=== PATIENT | female | born 1995 | race Caucasian/White ===

== ENCOUNTER 2018-09-25 07:21 | Emergency (ER) | payer MEDICAID, SELFPAY ==
[2018-09-25 07:31] VITALS: BP 133/91; PULSE 103; RESP 12; TEMP 36.6; O2SAT 97
--- NOTE | 2018-09-25 07:43 | W.ED.GENAD ---
Discharge Plan Disposition Patient Disposition: HOME Condition: Stable Discharge Details Chief Complaint: EarProblem Clinical Impression: Acute left otitis media Primary Care Provider: None,None ED Provider: Joe White Home Meds and New Rx's Prescriptions: New azithromycin 500 mg tablet See Rx Instructions .ROUTE .COMPLEX Qty: 6 RF: 0 No Action pantoprazole [Protonix] 20 MG tablet,delayed release (DR/EC) 40 mg PO DAILY RF: 0 Discharge Instructions Instructions: Otitis Media (ED) Additional Instructions: you can take 1000mg tylenol and 600mg ibuprofen every 6 hours for pain as needed if not better this week see your primary care provider if you feel significantly more ill, have persistent vomit or difficulty breathing return to the emergency department for reevaluation Medical Decision Making Pt comes in with 1 day of left ear pain and mild headache she states she gets with ear infections. 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 Her left tm is red and bulging. Given her pain level will start abx, advised f/u with pcp and return precautions given Differential Diagnosis uri, aom HPI General Mode of arrival: ambulatory. Date/Time Provider Initiated Documentation: 09/25/18 07:41. Limitations to Documentation: no limitations. Information obtained by: patient. History of Present Illness 23 year old F presents to the emergency department with the chief complaint of left ear pain, described as moderate, with intensity rated at 5. Quality is described as aching, Patient reports no radiation. Patient started experiencing this day(s) (1) and it has been constant. No relieving factors improve symptom(s), No exacerbating factors reported . Patient did receive the following treatments prior to arrival, none Related Data Home Medications Medication Instructions Recorded Confirmed pantoprazole [Protonix] 40 mg PO DAILY tab-cap 06/09/13 09/25/18 azithromycin See Rx Instructions .ROUTE 09/25/18 .COMPLEX #6 tab Previous Rx's Medication Instructions Recorded azithromycin See Rx Instructions .ROUTE 09/25/18 .COMPLEX #6 tab Allergies Allergy/AdvReac Type Severity Reaction Status Date / Time amoxicillin [Amoxicillin] Allergy Intermediate Effects Unverified 09/25/18 07:35 her breathing nitrofurantoin Allergy Intermediate Hives Unverified 09/25/18 07:35 [From Macrobid] nitrofurantoin Allergy Intermediate Hives Unverified 09/25/18 07:35 macrocrystalline [From Macrobid] General Stated Complaint: EarProblem ULISES: 5 Review of Systems Review of Systems All systems reviewed & are unremarkable except as noted in HPI and below Constitutional Denies chills, Denies fever(s) and Denies weakness Cardiovascular Denies chest pain and Denies dyspnea Respiratory Denies cough and Denies dyspnea Gastrointestinal Denies abdominal pain, Denies nausea and Denies vomiting Musculoskeletal Denies joint swelling Neurologic Denies weakness Endocrine Denies heat intolerance [facility] Social History Smoking/Tobacco Use Status: Never Exam Const General: no acute distress Orientation: alert HENMT Head: normal to inspection Ears: external ears normal General nose exam: external nose normal Mouth: moist mucous membranes Eyes General: appearance normal, both eyes and all related structures Neck Neck: normal visual inspection Resp Effort & Inspection: normal respiratory effort and able to speak in complete sentences Cardio Rate: regular rate Skin General skin exam: no rashes or lesions noted Neuro General: alert and oriented x3 Extrem General: normal to inspection Psych Mental Status: mental status grossly normal Course Vital Signs Temperature 36.6 C 09/25/18 07:31 Pulse 103 H 09/25/18 07:31 Respiratory Rate 12 09/25/18 07:31 Blood Pressure 133/91 H 09/25/18 07:31 Pulse Oximetry 97 09/25/18 07:31 Temperature 36.6 C 09/25/18 07:31 Temperature Source Temporal Artery Scan 09/25/18 07:31 Pulse 103 H 09/25/18 07:31 Respiratory Rate 12 09/25/18 07:31 Respiratory Effort Non-Labored 09/25/18 07:33 Blood Pressure 133/91 H 09/25/18 07:31 Blood Pressure Position Sitting 09/25/18 07:31 Pulse Oximetry 97 09/25/18 07:31 Oxygen Delivery Method Room Air 09/25/18 07:31 Oxygen Flow Rate 0 09/25/18 07:31 Pain Level 9 09/25/18 07:33
--- NOTE | 2018-09-25 07:46 | ED.GENADUL_ITS ---
Discharge Plan Disposition Patient Disposition: HOME Condition: Stable Discharge Details Chief Complaint: EarProblem Clinical Impression: Acute left otitis media Primary Care Provider: None,None ED Provider: Joe White Home Meds and New Rx's Prescriptions: New azithromycin 500 mg tablet See Rx Instructions .ROUTE .COMPLEX Qty: 6 RF: 0 No Action pantoprazole [Protonix] 20 MG tablet,delayed release (DR/EC) 40 mg PO DAILY RF: 0 Discharge Instructions Instructions: Otitis Media (ED) Additional Instructions: you can take 1000mg tylenol and 600mg ibuprofen every 6 hours for pain as needed if not better this week see your primary care provider if you feel significantly more ill, have persistent vomit or difficulty breathing return to the emergency department for reevaluation Medical Decision Making Pt comes in with 1 day of left ear pain and mild headache she states she gets with ear infections. 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 Her left tm is red and bulging. Given her pain level will start abx, advised f/u with pcp and return precautions given Differential Diagnosis uri, aom HPI General Mode of arrival: ambulatory . Date/Time Provider Initiated Documentation: 09/25/18 07:41 . Limitations to Documentation: no limitations . Information obtained by: patient . History of Present Illness 23 year old F presents to the emergency department with the chief complaint of left ear pain, described as moderate, with intensity rated at 5. Quality is described as aching, Patient reports no radiation. Patient started experiencing this day(s) (1) and it has been constant. No relieving factors improve symptom(s) , No exacerbating factors reported . Patient did receive the following treatments prior to arrival, none Related Data Home Medications Medication Instructions Recorded Confirmed pantoprazole [Protonix] 40 mg PO DAILY tab-cap 06/09/13 09/25/18 azithromycin See Rx Instructions .ROUTE 09/25/18 .COMPLEX #6 tab Previous Rx's Medication Instructions Recorded azithromycin See Rx Instructions .ROUTE 09/25/18 .COMPLEX #6 tab Allergies Allergy/AdvReac Type Severity Reaction Status Date / Time amoxicillin [Amoxicillin] Allergy Intermediate Effects Unverified 09/25/18 07:35 her breathing nitrofurantoin Allergy Intermediate Hives Unverified 09/25/18 07:35 [From Macrobid] nitrofurantoin Allergy Intermediate Hives Unverified 09/25/18 07:35 macrocrystalline [From Macrobid] General Stated Complaint: EarProblem ULISES: 5 Review of Systems Review of Systems All systems reviewed & are unremarkable except as noted in HPI and below Constitutional Denies chills, Denies fever(s) and Denies weakness Cardiovascular Denies chest pain and Denies dyspnea Respiratory Denies cough and Denies dyspnea Gastrointestinal Denies abdominal pain, Denies nausea and Denies vomiting Musculoskeletal Denies joint swelling Neurologic Denies weakness Endocrine Denies heat intolerance [facility] Social History Smoking/Tobacco Use Status: Never Exam Const General: no acute distress Orientation: alert HENMT Head: normal to inspection Ears: external ears normal General nose exam: external nose normal Mouth: moist mucous membranes Eyes General: appearance normal, both eyes and all related structures Neck Neck: normal visual inspection Resp Effort & Inspection: normal respiratory effort and able to speak in complete sentences Cardio Rate: regular rate Skin General skin exam: no rashes or lesions noted Neuro General: alert and oriented x3 Extrem General: normal to inspection Psych Mental Status: mental status grossly normal Course Vital Signs Temperature 36.6 C 09/25/18 07:31 Pulse 103 H 09/25/18 07:31 Respiratory Rate 12 09/25/18 07:31 Blood Pressure 133/91 H 09/25/18 07:31 Pulse Oximetry 97 09/25/18 07:31 Temperature 36.6 C 09/25/18 07:31 Temperature Source Temporal Artery Scan 09/25/18 07:31 Pulse 103 H 09/25/18 07:31 Respiratory Rate 12 09/25/18 07:31 Respiratory Effort Non-Labored 09/25/18 07:33 Blood Pressure 133/91 H 09/25/18 07:31 Blood Pressure Position Sitting 09/25/18 07:31 Pulse Oximetry 97 09/25/18 07:31 Oxygen Delivery Method Room Air 09/25/18 07:31 Oxygen Flow Rate 0 09/25/18 07:31 Pain Level 9 09/25/18 07:33
[2018-09-25] MEDS: Ketorolac 30 MG/ML VIAL IM (07:53)
== END 2018-09-25 08:00 | disposition home or self-care (01) ==
PROVIDERS: Emergency Provider Emergency Medicine
DX: H66.91 Otitis media, unspecified, right ear (principal); R51 Headache
CPT/HCPCS: 96372; 99284; 99283; J1885

== ENCOUNTER 2019-01-24 00:35 | Emergency (ER) | payer MEDICAID, SELFPAY ==
[2019-01-24 00:37] VITALS: BP 128/89; PULSE 94; RESP 20; TEMP 36.4; O2SAT 100
--- NOTE | 2019-01-24 00:47 | ED.GENADUL_ITS ---
Discharge Plan Disposition Patient Disposition: HOME Condition: Stable Discharge Details Chief Complaint: RespSymp Clinical Impression: URI (upper respiratory infection) Primary Care Provider: None,None ED Provider: Joe White Home Meds and New Rx's Prescriptions: New benzonatate [Tessalon Perles] 100 mg capsule 100 mg PO TID PRN (Reason: cough) Qty: 20 RF: 0 Continued pantoprazole [Protonix] 20 MG tablet,delayed release (DR/EC) 40 mg PO DAILY RF: 0 Discharge Instructions Instructions: Upper Respiratory Infection (ED) Additional Instructions: follow up with your primary care provider you can take 1000mg tylenol and 600mg ibuprofen every 6 hours for pain as needed if you feel you are becoming more ill or having worsening shortness of breath return to the emergency department Medical Decision Making 23 yo female who denies chronic medical problems, states she is a smoker but denies alcohol or drug use comes in with cough for 2 months despite prednisone, inhalers and abx. Denies fevers or recent travel. on exam she is speaking in full sentences in no distress laughing intermittently with clear lungs, has clear rhinorrhea, normal tm's. Given lack of fever and normal lung exam do not feel xray or abx indicated. Given clear rhinorrhea suspect uri from virus and post nasal drip. Advised f/u with pcp and return precautions given Differential Diagnosis uri, bronchitis, pna HPI General Mode of arrival: ambulatory . Date/Time Provider Initiated Documentation: 01/24/19 00:41 . Limitations to Documentation: no limitations . Information obtained by: patient . History of Present Illness 23 year old F presents to the emergency department with the chief complaint of cough, described as moderate, Patient started experiencing this month(s) (2) and it has been intermittent. No relieving factors improve symptom(s), No exacerbating factors reported . Patient notes other (nasal congestion). Related Data Home Medications Medication Instructions Recorded Confirmed pantoprazole [Protonix] 40 mg PO DAILY tab-cap 06/09/13 01/24/19 benzonatate [Tessalon Perles] 100 mg PO TID PRN #20 cap 01/24/19 Previous Rx's Medication Instructions Recorded benzonatate [Tessalon Perles] 100 mg PO TID PRN #20 cap 01/24/19 Allergies Allergy/AdvReac Type Severity Reaction Status Date / Time amoxicillin [Amoxicillin] Allergy Intermediate Effects Unverified 01/24/19 00:39 her breathing nitrofurantoin Allergy Intermediate Hives Unverified 01/24/19 00:39 [From Macrobid] nitrofurantoin Allergy Intermediate Hives Unverified 01/24/19 00:39 macrocrystalline [From Macrobid] General Stated Complaint: RespSymp ULISES: 4 Review of Systems Review of Systems All systems reviewed & are unremarkable except as noted in HPI and below Constitutional Denies chills and Denies fever(s) Cardiovascular Denies chest pain Gastrointestinal Denies nausea and Denies vomiting Integumentary/Breasts Denies rash Psychiatric Denies depression PFSH Medical History ADHD (Acute) PTSD (post-traumatic stress disorder) (Acute) Acid reflux (Chronic) Anxiety (Chronic) Depression (Chronic) Surgical History H/O adenoidectomy (Acute) H/O oral surgery (Acute) Hx of tonsillectomy (Chronic) Social History Smoking/Tobacco Use Status: Current every day Tobacco Type: cigarettes Smoking cigarettes per day: 10 Tobacco: How many years used: 17 Alcohol Intake: never Drug use: Never Substance use type: does not use Do you feel safe at home: Yes Do you feel safe in your relationship?: Yes Exam Const General: no acute distress Orientation: alert HENMT Head: normal to inspection Ears: external ears normal General nose exam: external nose normal Mouth: moist mucous membranes Eyes General: appearance normal, both eyes and all related structures Neck Neck: normal visual inspection Resp Effort & Inspection: normal respiratory effort and able to speak in complete sentences Cardio Rate: regular rate Skin General skin exam: no rashes or lesions noted Neuro General: alert and oriented x3 Extrem General: normal to inspection Psych Mental Status: mental status grossly normal Course Vital Signs Temperature 36.4 C L 01/24/19 00:37 Pulse 94 H 01/24/19 00:37 Respiratory Rate 20 01/24/19 00:37 Blood Pressure 128/89 01/24/19 00:37 Pulse Oximetry 100 01/24/19 00:37 Temperature 36.4 C L 01/24/19 00:37 Temperature Source Skin 01/24/19 00:37 Pulse 94 H 01/24/19 00:37 Respiratory Rate 20 01/24/19 00:37 Respiratory Effort 06/04/19 00:41 Respiratory Depth Normal 01/24/19 00:41 Blood Pressure 128/89 01/24/19 00:37 Blood Pressure Position Sitting 01/24/19 00:37 Pulse Oximetry 100 01/24/19 00:37 Oxygen Delivery Method Room Air 01/24/19 00:37 Oxygen Flow Rate 0 01/24/19 00:37 Pain Level 7 01/24/19 00:37
[2019-01-24] MEDS: Ibuprofen 600 MG TAB PO (00:48)
[2019-01-24] MEDS: Benzonatate 100 MG CAP PO (00:48)
== END 2019-01-24 00:50 | disposition home or self-care (01) ==
LOC: ER 00:49
PROVIDERS: Emergency Provider Emergency Medicine
DX: J06.9 Acute upper respiratory infection, unspecified (principal); F17.210 Nicotine dependence, cigarettes, uncomplicated
CPT/HCPCS: 99283

== ENCOUNTER 2019-03-14 16:03 | Emergency (ER) | payer MEDICAID, SELFPAY ==
[2019-03-14 16:12] VITALS: BP 131/99; PULSE 99; RESP 16; TEMP 36.4; O2SAT 100
--- NOTE | 2019-03-14 16:26 | DI.US_ITS ---
SYMPTOMS/DIAGNOSIS: LOWER ABD PAIN, ? ECTOPIC VS OVARIAN TORSION OB ULTRASOUND: Routine examination was performed. There is a tiny intrauterine fluid collection which may represent an early gestational sac. Based on diameter this would correspond to a 5 week 2 day gestational age. No pole or yolk sac is identified. No heart beat is identified. The ovaries are normal in size with normal blood flow. No evidence of torsion. There is a 1.9 x 1.8 x 2 cm cyst on the right ovary which may represent a corpus luteal cyst. There is a small amount of free fluid adjacent to the right ovary. IMPRESSION: Intrauterine fluid collection which may represent an early gestational sac. Based on size this would correspond to a 5 week 2 day gestational age. Recommend short term follow up and correlation with beta HCG level to determine viability of the potential . Many abnormalities cannot be diagnosed. A normal exam does not exclude a congenital anomaly. Date of exam: 03/14/19 LMP: ? EDC by LMP: Previous study: wks Range: to EDC by prior us: Findings: Prior surgery/: BIOMETRY: PELVIC MEASUREMENTS: CRL: mm wks Uterus: 9.5 x 4.8 x 6.0 cm Yolk sac: mm wks Gest sac: 4.5 mm 5+2 wks Rt Ovary: 3.1 x 2.7 x 2.4 cm BPD: mm wks HC: mm wks Lt Ovary: 1.8 x 1.2 x 1.2 cm AC: mm wks FL: mm wks Comments: 1.9 x 1.8 x 2.0 cm rt corpus luteum cyst with small amount of free fluid adjacent to rt ovary Composite Age (US): wks EDC by US: Heart Rate: BPM Amniotic Fluid: Oligo Normal Polyhydramnios Movement noted: Yes No Comments: 1. Intrauterine gestational sac with no yolk sac/ pole seen on today's exam. 2. Ovaries show art/venous blood flow.
--- NOTE | 2019-03-14 16:27 | W.ED.GENAD ---
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 Clinical Impression: Early stage of Primary Care Provider: None,None ED Provider: Joe White Home Meds and New Rx's Prescriptions: No Action pantoprazole [Protonix] 20 MG tablet,delayed release (DR/EC) 40 mg PO DAILY RF: 0 benzonatate [Tessalon Perles] 100 mg capsule 100 mg PO TID PRN (Reason: cough) Qty: 20 RF: 0 Discharge Instructions Additional Instructions: your lab work and ultrasound did not show any concerning findings follow up as scheduled with [facility] next week if you feel more ill or have severe worsening pain or persistent vomit return to the emergency department start taking a multivitamin meant for daily Medical Decision Making 24 yo female comes in with several days of pelvic cramping and pain. She states she had a test at home on that was positive and her last menstrual period was in January. She states she has had intermittent cramping and was seen yesterday at [facility], tx'd for dehydration and d/c'd. Cramping continued today so came here. Denies fevers or vaginal bleeding. She has lower pelvic cramping no abdominal tenderness to suggest appendicitis or other surgical pathology. Will obtain hcg and also obtain u/s to eval for torsion vs ectopic labs show no concerning findings, she feels much better, does have ketones indicating dehydration. Us shows gestational sac intrauterine without yolk sac, normal ovaries and flow. Spoke with Dr. spencer and pt has appt next week which is fine per Dr. Spencer, will have her keep this appointment and f/u with arnaud wolf given Differential Diagnosis ectopic, torsion, miscarriage Imaging Data Radiologic Study: Attestation: I personally reviewed and interpreted this imaging study as follows: Imaging: Ultrasound Radiologist's impression: likely live early iup per vrad Lab Data Lab results reviewed: Yes I reviewed the patient's lab results. HPI General Mode of arrival: ambulatory. Date/Time Provider Initiated Documentation: 03/14/19 16:26. Limitations to Documentation: no limitations. Information obtained by: patient. History of Present Illness 24 year old F presents to the emergency department with the chief complaint of pelvic pain/cramping, described as moderate, Quality is described as other (cramping), and it has been constant. No relieving factors improve symptom(s), No exacerbating factors reported . Patient did receive the following treatments prior to arrival, none Related Data Home Medications Medication Instructions Recorded Confirmed pantoprazole [Protonix] 40 mg PO DAILY tab-cap 06/09/13 01/24/19 benzonatate [Tessalon Perles] 100 mg PO TID PRN #20 cap 01/24/19 Previous Rx's Medication Instructions Recorded benzonatate [Tessalon Perles] 100 mg PO TID PRN #20 cap 01/24/19 Allergies Allergy/AdvReac Type Severity Reaction Status Date / Time amoxicillin [Amoxicillin] Allergy Intermediate Effects Unverified 01/24/19 00:39 her breathing nitrofurantoin Allergy Intermediate Hives Unverified 01/24/19 00:39 [From Macrobid] nitrofurantoin Allergy Intermediate Hives Unverified 01/24/19 00:39 macrocrystalline [From Macrobid] 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: 3 Review of Systems Review of Systems All systems reviewed & are unremarkable except as noted in HPI and below Constitutional Denies chills and Denies fever(s) Cardiovascular Denies chest pain and Denies dyspnea Respiratory Denies dyspnea Genitourinary Denies dysuria Musculoskeletal Denies joint swelling Integumentary/Breasts Denies rash Endocrine Denies heat intolerance [facility] Medical History (Updated 01/24/19 @ 00:39 by Anny Baker) Acid reflux (Chronic) ADHD (Acute) Anxiety (Chronic) Depression (Chronic) PTSD (post-traumatic stress disorder) (Acute) Surgical History (Updated 01/24/19 @ 00:40 by Anny Baker) H/O adenoidectomy (Acute) H/O oral surgery (Acute) Hx of tonsillectomy (Chronic) Social History Smoking/Tobacco Use Status: Current every day Tobacco Type: cigarettes Tobacco: How many years used: 17 Alcohol Intake: never Drug use: Never Substance use type: does not use Do you feel safe at home: Yes Do you feel safe in your relationship?: Yes Exam Const General: no acute distress Orientation: alert HENMT Head: normal to inspection Ears: external ears normal General nose exam: external nose normal Mouth: moist mucous membranes Eyes General: appearance normal, both eyes and all related structures Neck Neck: normal visual inspection Resp Effort & Inspection: normal respiratory effort and able to speak in complete sentences Cardio Rate: regular rate GI Palpation: soft Skin General skin exam: no rashes or lesions noted Neuro General: alert and oriented x3 Extrem General: normal to inspection Psych Mental Status: mental status grossly normal Course Vital Signs Temperature 36.4 C L 03/14/19 16:12 Pulse 99 H 03/14/19 16:12 Respiratory Rate 16 03/14/19 16:12 Blood Pressure 131/99 H 03/14/19 16:12 Pulse Oximetry 100 03/14/19 16:12 Temperature 36.4 C L 03/14/19 16:12 Temperature Source Skin 03/14/19 16:12 Pulse 99 H 03/14/19 16:12 Respiratory Rate 16 03/14/19 16:12 Respiratory Effort Non-Labored 03/14/19 16:17 Blood Pressure 131/99 H 03/14/19 16:12 Blood Pressure Position Sitting 03/14/19 16:12 Pulse Oximetry 100 03/14/19 16:12 Oxygen Delivery Method Room Air 03/14/19 16:12 Oxygen Flow Rate 0 03/14/19 16:12 Pain Level 9 03/14/19 16:18
[2019-03-14] MEDS: Normal Saline 1,000 ML 1000 ML IV (16:42)
[2019-03-14 16:48] LABS: Abs Immature Grans 0.01 k/cumm (0.0-0.09); Absolute Basophil Count 0.06 k/cumm (0.0-0.2); Absolute Eosinophil Count 0.03 k/cumm (0.0-0.7); Absolute Lymphocyte Count 2.91 k/cumm (1.2-3.4); Absolute Monocyte Count 0.76 k/cumm (0.11-0.7); Absolute Neutrophil Count 6.75 k/cumm (1.2-6.7); Basophils % 0.6; Eosinophils % 0.3; HCT 39.8 % (36.0-46.0); HGB 13.2 g/dL (12.0-15.5); Immature Grans % 0.1; Lymphocytes % 27.7; Mean Corp. HGB Concentration 33.2 g/dL (32.0-36.0); Mean Corpuscular Hemoglobin 27.8 pg (27.0-33.0); Mean Platelet Volume 10.5 fL (8.0-11.0); Monocytes % 7.2; Neutrophils % 64.1; Platelet Count 260 x1000/uL (130-400); RBC 4.74 m/cumm (4.00-5.20); RBC Distribution Width 14.2 % (11.7-14.6); White Blood Cell Count 10.52 k/cumm (4.4-10.8)
[2019-03-14 17:07] LABS: ALT 14 U/L (12-78); AST 8 U/L (15-37); Albumin 3.9 g/dL (3.4-5.0); Alkaline Phosphatase 84 U/L (46-116); Anion Gap 10.5 mmol/L (3-11); BUN 9 mg/dL (7-18); Bilirubin, Total 0.5 mg/dL (0.2-1.0); CO2 25.5 mmol/L (21.0-32.0); CREATININE 0.59 mg/dL (0.55-1.02); Calcium 9.3 mg/dL (8.5-10.1); Chloride 104 mmol/L (98-107); Glucose 87 mg/dL (70-100); Lipase 86 U/L (73-393); Potassium 3.4 mmol/L (3.5-5.1); Sodium 140 mmol/L (136-145); Total Protein 7.7 g/dL (6.4-8.2)
[2019-03-14 17:28] LABS: HCG Quant, Pregnancy 3092 mIU/mL (1-3)
--- NOTE | 2019-03-14 18:15 | NUR.NOTE ---
urine sample obtained Nursing Note:
[2019-03-14 18:20] LABS: Bilirubin Small (Negative); Blood Negative (Negative); Clarity Clear (Clear); Glucose Negative (Negative); Ketones >=160 mg/dL (Negative); Leukocyte Esterase Negative (Negative); Nitrite Negative (Negative); Specific Gravity 1.025 (1.005-1.025); Urobilinogen 0.2 EU/dL (Up TO 0.2); pH 5.5 (5-8)
--- NOTE | 2019-03-14 18:21 | NUR.NOTE ---
urine sample obtained Nursing Note:
--- NOTE | 2019-03-14 18:24 | DI.VRAD_ITS ---
EXAM: US First Trimester, Transabdominal EXAM DATE/TIME: 03/14/2019 5:55 PM CLINICAL HISTORY: 24 years old, female; complicated by abdominal or pelvic pain; Right lower quadrant; First trimester; Gestational age or lmp: Unknown lmp; ; Patient HX: No priors for this TECHNIQUE: Imaging protocol: Real-time transabdominal obstetrical ultrasound of the maternal pelvis and a first trimester , less than 14 weeks 0 days, with image documentation. COMPARISON: US PELVIS NO PERTINENT PELVIC ULTRASOUND. PRIOR ULTRASOUND TRANSVAG 19/04/2012 17:55 FINDINGS: Other findings: The right and left ovaries are normal. GESTATION: Gestation: There is an intrauterine fluid collection likely a early gestational sac. There is no pole, no yolk sac, and no heart beat identified. Heart rate: No heart rate observed. BIOMETRY: Estimated gestational age: The mean sac diameter is 0.45 cm corresponding to 5 weeks 2 days gestational age. MATERNAL: Uterus: Unremarkable. Cervix: Unremarkable. Right adnexa: Unremarkable. Left adnexa: Unremarkable. Intraperitoneal: No intraperitoneal free fluid. IMPRESSION: Possible early intrauterine gestational sac corresponding to 5 weeks 2 days gestational age. Recommend short term interval followup and correlation with beta hCG to determine viability of the potential . Dictated and Authenticated by: Dolores Figueroa MD. Ordering:CHRISTOPHE Diaz MD
== END 2019-03-14 18:45 | disposition home or self-care (01) ==
PROVIDERS: Emergency Provider Emergency Medicine
DX: O26.891 Other specified pregnancy related conditions, first trimester (principal); R10.30 Lower abdominal pain, unspecified; Z3A.00 Weeks of gestation of pregnancy not specified
CPT/HCPCS: 36415; 80053; 81025; 83690; 96360; 99284; 76801; 81003; 84702; 85025

== ENCOUNTER 2019-03-19 23:43 | Observation (INO) | payer MEDICAID, SELFPAY ==
[2019-03-19 23:50] VITALS: BP 136/102; PULSE 86; RESP 18; TEMP 36.4; O2SAT 98
--- NOTE | 2019-03-19 23:50 | W.ED.GENAD ---
Discharge Plan Disposition Patient Disposition: [facility] INPATIENT Condition: Improving Discharge Details Chief Complaint: PsychEval Clinical Impression: Abdominal pain during in first trimester, Depression, Suicidal ideation Primary Care Provider: None,None ED Provider: Rachel Hood Home Meds and New Rx's Prescriptions: No Action No Known Home Meds RF: 0 Medical Decision Making 24-year-old homeless L1 with history of 1 stillborn and one 6-year-old daughter who lives with her mother who is approximately 6 weeks and presents for lower abdominal pain for the past week and suicidal ideation. Denies vaginal bleeding. Vitals within normal limits. Patient appears nontoxic. She has mild suprapubic tenderness but otherwise abdomen soft without rigidity or guarding. Ultrasound 5 days ago noted gestational sac. Bedside ultrasound done which notes gestational sac but may be too early to detect heart beat. Patient has a previous history of suicide attempt in which she cut her right wrist. She currently has no plan. She has no right lower quadrant tenderness and no other peritoneal signs, so doubt an acute abdomen or appendicitis. Will check screening labs, urinalysis, alcohol, UDS, hCG and give fluids and a dose of Tylenol. Will discuss with OB and if medically cleared, will call mental health for evaluation. 0130 --labs reviewed. Normal white blood cell count, electrolytes. Beta quant 14178, which appears to be rising appropriately compared to 5 days ago at 3092. Urinalysis negative for infection. UDS notes THC. Alcohol negative. Patient given Tylenol and fluids here and feels much better. Case discussed with OB on-call Dr. Loya and will follow up with patient on her scheduled appointment on Wednesday. Patient is medically cleared. Mental health paged for evaluation. 0345 --discussed with mental health -patient is still admitting to feeling suicidal and states that if she goes home, she will harm herself. Referral was placed to [facility] and other facilities. Patient will not be accepted at this time. Will admit patient to the floor awaiting psychiatric placement. 0400 --discussed with hospitalist -accepts patient for admission. Medical Records Medical records reviewed: Yes I reviewed the patient's medical records. Lab Data Lab results reviewed: Yes I reviewed the patient's lab results. Laboratory Tests Range/Units 03/20/19 03/20/19 03/20/19 00:01 00:01 00:40 WBC (4.4-10.8) k/cumm RBC (4.00-5.20) m/cumm Hgb (12.0-15.5) g/dL Hct (36.0-46.0) % MCV (80-95) fL MCH (27.0-33.0) pg MCHC (32.0-36.0) g/dL RDW (11.7-14.6) % Plt Count (130-400) x1000/uL MPV (8.0-11.0) fL Immature Gran % Neutrophils % Lymphocytes % Monocytes % Eosinophils % Basophils % Absolute Neutrophils (1.2-6.7) k/cumm Absolute Lymphocytes (1.2-3.4) k/cumm Absolute Monocytes (0.11-0.7) k/cumm Absolute Eosinophils (0.0-0.7) k/cumm Absolute Basophils (0.0-0.2) k/cumm Sodium (136-145) mmol/L 140 Potassium (3.5-5.1) mmol/L 3.7 Chloride (98-107) mmol/L 105 Carbon Dioxide (21.0-32.0) mmol/L 23.8 Anion Gap (3-11) mmol/L 11.2 H BUN (7-18) mg/dL 9 Creatinine (0.55-1.02) mg/dL 0.62 Estimated GFR/1.73 m2 (mL/min/1.73m2) >= 60.00 Glucose (70-100) mg/dL 101 H Calcium (8.5-10.1) mg/dL 8.7 Total Bilirubin (0.2-1.0) mg/dL 0.3 AST (15-37) U/L 11 L ALT (12-78) U/L 17 Alkaline Phosphatase (46-116) U/L 94 Total Protein (6.4-8.2) g/dL 7.1 Albumin (3.4-5.0) g/dL 3.5 Beta HCG, Quant (1-3) mIU/mL 05041 H Urine Color (Yellow) Yellow Urine Clarity (Clear) Cloudy Urine pH (5-8) 5.5 Ur Specific [place] (1.005-1.025) >= 1.030 H Urine Protein (Negative) mg/dL Negative Urine Ketones (Negative) mg/dL 15 H Urine Blood (Negative) Negative Urine Nitrite (Negative) Negative Urine Bilirubin (Negative) Negative Urine Urobilinogen (Up TO 0.2) EU/dL 0.2 Ur Leukocyte Esterase (Negative) Negative Urine Glucose (Negative) mg/dL Negative Urine Opiates Screen (Negative) Negative Urine Methadone Screen (Negative) Negative Ur Barbiturates Screen (Negative) Negative Ur Tricyclics Screen (Negative) Negative Ur Amphetamines Screen (Negative) Negative U Benzodiazepines Scrn (Negative) Negative Urine Cocaine Screen (Negative) Negative Ur THC Screen (Negative) Positive Ethyl Alcohol (<3) mg/dL Range/Units 03/20/19 03/20/19 00:40 00:40 WBC (4.4-10.8) k/cumm 10.79 RBC (4.00-5.20) m/cumm 4.53 Hgb (12.0-15.5) g/dL 12.9 Hct (36.0-46.0) % 38.7 MCV (80-95) fL 85.4 MCH (27.0-33.0) pg 28.5 MCHC (32.0-36.0) g/dL 33.3 RDW (11.7-14.6) % 14.7 H Plt Count (130-400) x1000/uL 300 MPV (8.0-11.0) fL 10.8 Immature Gran % 0.1 Neutrophils % 54.0 Lymphocytes % 37.6 Monocytes % 6.8 Eosinophils % 0.9 Basophils % 0.6 Absolute Neutrophils (1.2-6.7) k/cumm 5.83 Absolute Lymphocytes (1.2-3.4) k/cumm 4.06 H Absolute Monocytes (0.11-0.7) k/cumm 0.73 H Absolute Eosinophils (0.0-0.7) k/cumm 0.10 Absolute Basophils (0.0-0.2) k/cumm 0.06 Sodium (136-145) mmol/L Potassium (3.5-5.1) mmol/L Chloride (98-107) mmol/L Carbon Dioxide (21.0-32.0) mmol/L Anion Gap (3-11) mmol/L BUN (7-18) mg/dL Creatinine (0.55-1.02) mg/dL Estimated GFR/1.73 m2 (mL/min/1.73m2) Glucose (70-100) mg/dL Calcium (8.5-10.1) mg/dL Total Bilirubin (0.2-1.0) mg/dL AST (15-37) U/L ALT (12-78) U/L Alkaline Phosphatase (46-116) U/L Total Protein (6.4-8.2) g/dL Albumin (3.4-5.0) g/dL Beta HCG, Quant (1-3) mIU/mL Urine Color (Yellow) Urine Clarity (Clear) Urine pH (5-8) Ur Specific [place] (1.005-1.025) Urine Protein (Negative) mg/dL Urine Ketones (Negative) mg/dL Urine Blood (Negative) Urine Nitrite (Negative) Urine Bilirubin (Negative) Urine Urobilinogen (Up TO 0.2) EU/dL Ur Leukocyte Esterase (Negative) Urine Glucose (Negative) mg/dL Urine Opiates Screen (Negative) Urine Methadone Screen (Negative) Ur Barbiturates Screen (Negative) Ur Tricyclics Screen (Negative) Ur Amphetamines Screen (Negative) U Benzodiazepines Scrn (Negative) Urine Cocaine Screen (Negative) Ur THC Screen (Negative) Ethyl Alcohol (<3) mg/dL < 3.0 HPI General Mode of arrival: ambulatory. Date/Time Provider Initiated Documentation: 03/19/19 23:45. Limitations to Documentation: no limitations. Information obtained by: patient. HPI Narrative: Pt is a 24yo F who is L1 with h/o 1 stillborn and 1 live daughter age 6 who is approximately 6 weeks who presents with lower abdominal cramping for the past week and thoughts of suicide. Patient states that she has had a previous history of suicide attempt in which she cut her wrist. She states she has a history of cutting when she was younger. She states her lower abdominal pain feels like intermittent cramping but is becoming more constant. She states the pain is currently 8/10. She has been taking Motrin and Tylenol for the pain with some relief. She admits to occasional nausea and vomiting but denies any diarrhea, urinary symptoms or fever. She denies any alcohol or drug use or hallucinations. She states she has her upcoming appointment with OB here on Wednesday. She denies any vaginal bleeding. Patient was seen here 5 days ago for similar lower abdominal pain and had lab work and ultrasound which noted Intrauterine fluid collection which may represent an early gestational sac. Based on size this would correspond to a 5 week 2 day gestational age. Recommend short term follow up and correlation with beta HCG level to determine viability of the potential . Of note, patient was brought in by police after patient's friend notified them of patient's threatening suicide message posted on [employer]. Patient's friend called the police and they found patient outside as she is homeless. Patient states her 6-year-old daughter lives with her mother. Patient states she cannot live at her mother's house because her stepfather does not like her. Related Data Home Medications Medication Instructions Recorded Confirmed Unknown [No Known Home Meds] 03/20/19 03/20/19 Allergies Allergy/AdvReac Type Severity Reaction Status Date / Time amoxicillin [Amoxicillin] Allergy Intermediate Effects Unverified 03/20/19 00:04 her breathing nitrofurantoin Allergy Intermediate Hives Unverified 03/20/19 00:04 [From Macrobid] nitrofurantoin Allergy Intermediate Hives Unverified 03/20/19 00:04 macrocrystalline [From Macrobid] shell fish AdvReac Intermediate Wheezing Uncoded 03/20/19 00:05 General ULISES: 3 Review of Systems Review of Systems All systems reviewed & are unremarkable except as noted in HPI and below Constitutional Reports as per HPI, Denies chills and Denies fever(s) Eyes Denies blurry vision ENT Denies dizziness, Denies sore throat and Denies throat swelling Cardiovascular Denies chest pain and Denies dyspnea Respiratory Denies cough and Denies dyspnea Gastrointestinal Denies abdominal pain, Denies diarrhea and Denies vomiting Genitourinary Denies hematuria and Denies dysuria Musculoskeletal Denies back pain and Denies numbness Integumentary/Breasts Denies lesions and Denies rash Neurologic Denies dizziness, Denies focal weakness and Denies numbness Allergic/Immunologic Denies throat swelling [facility] Medical History Acid reflux (Chronic) ADHD (Acute) Anxiety (Chronic) Depression (Chronic) PTSD (post-traumatic stress disorder) (Acute) Surgical History H/O adenoidectomy (Acute) H/O oral surgery (Acute) Hx of tonsillectomy (Chronic) Social History Smoking/Tobacco Use Status: Current every day Tobacco Type: cigarettes Tobacco: How many years used: 17 Alcohol Intake: never Drug use: Never Substance use type: does not use Do you feel safe at home: No Do you feel safe in your relationship?: Yes History History 3 Para 2 Hx # Term Pregnancies Multiple births Hx # Pregnancies Ectopic pregnancies AB induced Hx Number of Living Children 1 AB spontaneous Exam Const General: cooperative, healthy appearing and no acute distress HENMT Head: normal to inspection Face and sinus: normal facial exam Eyes General: appearance normal, both eyes and all related structures Pupils: PERRL EOM: EOM intact bilaterally Neck Neck: normal visual inspection and No submandibular swelling Lymphatic: no lymphadenopathy noted Chest Chest: normal inspection of the chest and no tenderness Resp Effort & Inspection: normal respiratory effort and able to speak in complete sentences Auscultation: clear to auscultation bilaterally Cardio Rate: regular rate Rhythm: regular rhythm GI Inspection: normal to inspection Palpation: soft, not firm, not rigid and tender suprapubicly Auscultation: normal bowel sounds Skin General skin exam: no rashes or lesions noted Neuro General: alert, awake and oriented x3 Cognition: normal cognition Speech: speech normal Motor: muscle tone normal throughout Sensory Exam: no sensory deficits noted Extrem General: normal to inspection, full ROM, normal capillary refill, no calf tenderness bilaterally and no edema Psych Appearance: grossly normal Mental Status: mental status grossly normal Speech and Movement: speech and movement normal Affect: normal affect Attitude: cooperative Thought Process: normal Thought Content: normal Insight: insight good Judgment: judgment good
[2019-03-20 00:24] LABS: Bilirubin Negative (Negative); Blood Negative (Negative); Clarity Cloudy (Clear); Glucose Negative (Negative); Ketones 15 mg/dL (Negative); Leukocyte Esterase Negative (Negative); Nitrite Negative (Negative); Specific Gravity >= 1.030 (1.005-1.025); Urobilinogen 0.2 EU/dL (Up TO 0.2); pH 5.5 (5-8)
[2019-03-20 00:44] LABS: *AMPHETAMINES SCREEN URINE Negative (Negative); *BARBITURATES SCREEN URINE Negative (Negative); *BENZODIAZEPINES SCREEN URINE Negative (Negative); Cannabinoids THC POSITIVE (Negative); Cocaine Screen,Urine Negative (Negative); METHADONE URINE SCREEN Negative (Negative); OPIATES URINE SCREEN Negative (Negative)
[2019-03-20 00:54] LABS: Tricyclic Antidepressants Negative (Negative)
[2019-03-20 01:01] LABS: Abs Immature Grans 0.01 k/cumm (0.0-0.09); Absolute Basophil Count 0.06 k/cumm (0.0-0.2); Absolute Lymphocyte Count 4.06 k/cumm (1.2-3.4); Absolute Monocyte Count 0.73 k/cumm (0.11-0.7); Absolute Neutrophil Count 5.83 k/cumm (1.2-6.7); Basophils % 0.6; Eosinophils % 0.9; HCT 38.7 % (36.0-46.0); HGB 12.9 g/dL (12.0-15.5); Immature Grans % 0.1; Lymphocytes % 37.6; Mean Corp. HGB Concentration 33.3 g/dL (32.0-36.0); Mean Corpuscular Hemoglobin 28.5 pg (27.0-33.0); Mean Corpuscular Volume 85.4 fL (80-95); Mean Platelet Volume 10.8 fL (8.0-11.0); Monocytes % 6.8; Platelet Count 300 x1000/uL (130-400); RBC 4.53 m/cumm (4.00-5.20); RBC Distribution Width 14.7 % (11.7-14.6); White Blood Cell Count 10.79 k/cumm (4.4-10.8)
[2019-03-20 01:09] LABS: ETHANOL BLOOD < 3.0 mg/dL (<3)
[2019-03-20] MEDS: Normal Saline 1,000 ML 1000 ML IV (01:14)
[2019-03-20] MEDS: Acetaminophen 325 MG TAB 650 MG PO (01:28)
[2019-03-20 01:31] LABS: ALT 17 U/L (12-78); AST 11 U/L (15-37); Albumin 3.5 g/dL (3.4-5.0); Alkaline Phosphatase 94 U/L (46-116); Anion Gap 11.2 mmol/L (3-11); BUN 9 mg/dL (7-18); Bilirubin, Total 0.3 mg/dL (0.2-1.0); CO2 23.8 mmol/L (21.0-32.0); CREATININE 0.62 mg/dL (0.55-1.02); Calcium 8.7 mg/dL (8.5-10.1); Chloride 105 mmol/L (98-107); Glucose 101 mg/dL (70-100); Potassium 3.7 mmol/L (3.5-5.1); Sodium 140 mmol/L (136-145); Total Protein 7.1 g/dL (6.4-8.2)
[2019-03-20 01:32] LABS: HCG Quant, Pregnancy 18182 mIU/mL (1-3)
--- NOTE | 2019-03-20 04:51 | PDOC.MHCN_ITS ---
Date of service: 03/20/19 Time of Service: 04:51 Mental Health Crisis Note Presenting Issue How did you arrive at the ED and why did you come: [facility] Police ([employer]) bring Shagufta to the hospital after she tells a friend that she is having suicidal thoughts and is feeling unsafe. The friend calls P to request a wellcare check and Shagufta is subsequently transported to the ED. Precipitating Factors Shagufta reports intermittent suicidal ideation for several months with worsening of her suicidal thoughts over the past couple of days. She denies having a plan currently but states she has a history of cutting behaviors and would likely slit her wrists. Shagufta has a number of stressors, such as no family supports, is homeless, has no contact with her 6-year-old daughter who is in the care of her mother, no financial means, in addition to being and being pressured by the baby's father into ending the . Disposition BEHAVIOR: Cooperative. EYE CONTACT: Good. MOOD: Depressed. AFFECT: Congruent to mood. APPETITE: Good. SLEEP(trouble falling/staying asleep: Reports difficulty sleeping at night but this may be due to her lack of safe housing and the fact that she is sleeping on park benches and in the [place]. Plan Plan is to seek a voluntary hospitalization for mood stabilization. A referral is faxed to [facility] for review. Shagufta will remain at [facility] until a placement can be secured for her. Signature Clinician's Name/Title: Jyothi Meier BA [facility] Mechatronics Technologist
[2019-03-20 04:55] VITALS: BP 111/74; PULSE 84; RESP 20; O2SAT 98
[2019-03-20 05:16] VITALS: BP 111/74; PULSE 84; RESP 20; TEMP 36.7; O2SAT 98
--- NOTE | 2019-03-20 06:33 | W.PM.HP.N ---
Date of service: 03/20/19 Time of Service: 06:34 Assessment and Plan (1) Suicidal ideation: Start date: 03/19/19 Current visit: Yes Status: Acute This is a 24-year-old lady with suicidal ideation and previous attempted suicide slashing her wrist who has been a cutter when she was younger and is chronically depressed now homeless with first trimester and abdominal pain. She is not having cramping or bleeding and did have a ultrasound with pole with no heartbeat in the ED 5 days prior to this admission. She does have a rising serum hCG from 3000 to 18,000 and these last 6 days. It does not appear that she is presently a threatened and abdominal pain may be secondary to her overall status, being on the street with poor diet and depressed. She was admitted overnight for observation until mental health could place her to voluntary inpatient care bed. [facility] had been contacted and would consider taking her in the morning. (2) Abdominal pain during intrauterine : Start date: 03/19/19 Current visit: Yes Status: Acute At the time of my exam patient had no abdominal pain, she is obese and this may be functional with her depression. It does not appear she is having a threatened at this time. SURFACE GRINDER did review her case and cleared her for observation and psychiatric inpatient care. Lab evaluation was unrevealing and does not need to be repeated. Will be no further investigation of this problem at this facility. History of Present Illness Chief Complaint: Suicidal thoughts posted on Facebook Narrative: This is a 24-year-old lady who has her third at 6 weeks gestation having had an ultrasound with a similar ED visit 5 days ago which showed a gestational sac but no heartbeat. Presently she is homeless stating that she cannot live with her mother because her stepfather does not like her. She has 1 daughter who is 6 years old lives with her mother and she had one stillbirth prior to this . She has had cutting with depression in the past. She agrees with inpatient psych evaluation and [facility] was contacted but was not reviewed this until microbiology supervisor. She was admitted for observation overnight with one-on-one care on the OB floor because of her and be disruptive of the patient on the psych floor. She reviewed with the abdominal pain being 8 out of 10 but presently is complaining of no abdominal pain. She has had no vaginal bleeding. She had no significant pelvic cramping. In the past she has had depression with cutting as stated and she at one time did attempt to cut her wrists. She denies street drug but does have THC in her urine drug screen. [place] lives in the park and on the street presently. Adriane still has her phone where she was posting on Facebook to a girlfriend when the police were notified and found her outside. Review of Systems Review of Systems 13 point review of systems otherwise unrevealing or as per HPI. Patient has minimal conversation with depression but is comfortable with conversation. [facility] Medical History Acid reflux (Chronic) ADHD (Acute) Anxiety (Chronic) Depression (Chronic) PTSD (post-traumatic stress disorder) (Acute) Surgical History H/O adenoidectomy (Acute) H/O oral surgery (Acute) Hx of tonsillectomy (Chronic) Social History Smoking/Tobacco Use Status: Current every day Tobacco Type: cigarettes Tobacco: How many years used: 17 Alcohol Intake: never Drug use: Never Substance use type: does not use Do you feel safe at home: No Do you feel safe in your relationship?: Yes History History 3 Para 2 Hx # Term Pregnancies Multiple births Hx # Pregnancies Ectopic pregnancies AB induced Hx Number of Living Children 1 AB spontaneous Meds Home Medications Medication Instructions Recorded Confirmed Type Unknown [No Known Home Meds] 03/20/19 03/20/19 History Allergies Allergy/AdvReac Type Severity Reaction Status Date / Time amoxicillin [Amoxicillin] Allergy Intermediate Effects Unverified 03/20/19 00:04 her breathing nitrofurantoin Allergy Intermediate Hives Unverified 03/20/19 00:04 [From Macrobid] nitrofurantoin Allergy Intermediate Hives Unverified 03/20/19 00:04 macrocrystalline [From Macrobid] shell fish AdvReac Intermediate Wheezing Uncoded 03/20/19 00:05 Exam Narrative Exam Narrative: General: Patient is appropriate for age with flattened affect and very poor eye contact does cooperate with exam. He speaks a very soft voice. Speaks in clear sentences. She appears depressed. She has multiple piercings. She is obese and well-developed. HEENT: Normocephalic with eyes ears nose and throat normal some facial piercings as stated. Neck: Supple without JVD no palpable thyromegaly. Back: Stooped posture with no CVA tenderness. Lungs: Clear to auscultation percussion. Heart: Regular rate and rhythm with no murmurs gallops appreciated. Breast: Exam deferred. Abdomen: Obese, soft nontender to palpation with no palpable hepatosplenomegaly. Bowel sounds are active in all quadrants. Genitalia/Rectal: Exam deferred. Extremities: Without clubbing cyanosis or pitting edema. Peripheral pulses intact. Skin: Normal color, warm and dry with no rashes. Neuro: No nerves II through XII grossly intact, motor and sensory grossly intact. Cerebellar testing not performed. Psych: Flattened affect with poor eye contact, depressed mood with slow, soft monotonous voice. Remote and recent memory intact. Results Labs : 03/20/19 00:40 03/20/19 00:40 Laboratory Results - last 24 hr 03/20/19 03/20/19 03/20/19 00:01 00:01 00:40 WBC RBC Hgb Hct MCV MCH MCHC RDW Plt Count MPV Immature Gran % Neutrophils % Lymphocytes % Monocytes % Eosinophils % Basophils % Absolute Neutrophils Absolute Lymphocytes Absolute Monocytes Absolute Eosinophils Absolute Basophils Sodium 140 Potassium 3.7 Chloride 105 Carbon Dioxide 23.8 Anion Gap 11.2 H BUN 9 Creatinine 0.62 Estimated GFR/1.73 m2 >= 60.00 Glucose 101 H Calcium 8.7 Total Bilirubin 0.3 AST 11 L ALT 17 Alkaline Phosphatase 94 Total Protein 7.1 Albumin 3.5 Beta HCG, Quant 92134 H Urine Color Yellow Urine Clarity Cloudy Urine pH 5.5 Ur Specific [place] >= 1.030 H Urine Protein Negative Urine Ketones 15 H Urine Blood Negative Urine Nitrite Negative Urine Bilirubin Negative Urine Urobilinogen 0.2 Ur Leukocyte Esterase Negative Urine Glucose Negative Urine Opiates Screen Negative Urine Methadone Screen Negative Ur Barbiturates Screen Negative Ur Tricyclics Screen Negative Ur Amphetamines Screen Negative U Benzodiazepines Scrn Negative Urine Cocaine Screen Negative Ur THC Screen Positive Ethyl Alcohol Patient ABO/Rh 03/20/19 03/20/19 03/20/19 00:40 00:40 00:40 WBC 10.79 RBC 4.53 Hgb 12.9 Hct 38.7 MCV 85.4 MCH 28.5 MCHC 33.3 RDW 14.7 H Plt Count 300 MPV 10.8 Immature Gran % 0.1 Neutrophils % 54.0 Lymphocytes % 37.6 Monocytes % 6.8 Eosinophils % 0.9 Basophils % 0.6 Absolute Neutrophils 5.83 Absolute Lymphocytes 4.06 H Absolute Monocytes 0.73 H Absolute Eosinophils 0.10 Absolute Basophils 0.06 Sodium Potassium Chloride Carbon Dioxide Anion Gap BUN Creatinine Estimated GFR/1.73 m2 Glucose Calcium Total Bilirubin AST ALT Alkaline Phosphatase Total Protein Albumin Beta HCG, Quant Urine Color Urine Clarity Urine pH Ur Specific [place] Urine Protein Urine Ketones Urine Blood Urine Nitrite Urine Bilirubin Urine Urobilinogen Ur Leukocyte Esterase Urine Glucose Urine Opiates Screen Urine Methadone Screen Ur Barbiturates Screen Ur Tricyclics Screen Ur Amphetamines Screen U Benzodiazepines Scrn Urine Cocaine Screen Ur THC Screen Ethyl Alcohol < 3.0 Patient ABO/Rh O Positive Last Vital Signs Temp 36.7 C 03/20/19 05:16 Pulse 84 03/20/19 05:16 Resp 20 03/20/19 05:16 BP 111/74 03/20/19 05:16 Pulse Ox 98 03/20/19 05:16
[2019-03-20 09:00] VITALS: BP 110/75; PULSE 106; RESP 14; TEMP 37.2
[2019-03-20 10:45] LABS: FREE T4 1.05 ng/dL (0.76-1.46); TSH 2.66 uIU/mL (0.36-3.74)
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
--- NOTE | 2019-03-20 13:31 | NUR.NOTE ---
03/20/19 12:30 Patient is eating lunch, [employer]O in room at this time. Patient states that she is currently having dreams about harming herself that it involves a bridge but I'm not sure where that came from, patient is pleasant and appropriate.
--- NOTE | 2019-03-20 13:59 | NUR.NOTE ---
Addendum entered by Jeffery Byrne 03/20/19 14:27: Accepting physician Abby Scales Original Note: Nursing Note: 03/20/19 01:25 Report given given to Madi Rosales at [facility] all questions answered, patient is stable and going by ambulance to [facility]. Discharged at 13:20.
== END 2019-03-20 13:20 | disposition short-term general hospital (02) ==
LOC: ER 03-20 04:05 → OBS 03-20 05:02
PROVIDERS: Nurse Practitioner Family; Admitting Provider Family Medicine; Emergency Provider Physician Assistant; PCP Family Medicine; Visit Provider Internal Medicine
DX: O99.341 Other mental disorders complicating pregnancy, first trimester (principal); F32.9 Major depressive disorder, single episode, unspecified; R45.851 Suicidal ideations; R10.9 Unspecified abdominal pain; Z91.5 Personal history of self-harm; O26.891 Other specified pregnancy related conditions, first trimester; Z3A.01 Less than 8 weeks gestation of pregnancy; Z60.2 Problems related to living alone
CPT/HCPCS: 36415; 80053; 80307; 86900; 86901; 96360; 99220; 99239; 99285; 80320; 81003; 84439; 84443; 84702; 85025; 93005; 93010; 99284